=== PATIENT | female | born 1990 | race Caucasian/White ===

== ENCOUNTER 2018-07-24 02:51 | Emergency (ER) | payer BC ==
[2018-07-24 02:59] VITALS: BP 130/82; PULSE 61; TEMP 97.8; BMI 29.2
[2018-07-24] MEDS ORDERED: KETOROLAC TROMETHAMINE 60 MG/2 ML VIAL IM ONE (03:02)
[2018-07-24] MEDS ORDERED: KETOROLAC TROMETHAMINE 60 MG/2 ML VIAL ONE (03:02)
[2018-07-24] MEDS ORDERED: METOCLOPRAMIDE HCL INJECTION 10 MG/2 ML VIAL IM ONE (03:02)
--- NOTE | 2018-07-24 03:03 | PDOC ---
History of Present Illness - General Chief Complaint: Migraine Headache Stated Complaint: MIGRAINE Time Seen by Provider: 07/24/18 02:59 History Source: Patient Exam Limitations: No Limitations - History of Present Illness Initial Comments: 07/24/18 03:04 This is a 28-year-old female with history of migraines who comes in complaining of her typical migraine. Patient said that the frequency of them is changed other than that there is nothing new or unusual about her migraine headache. Patient said it is throbbing and frontal associated with nausea but no photophobia. Patient is otherwise healthy. Patient took her usual medication and so comes in for evaluation. PAST MEDICAL HISTORY: no significant history PAST SURGICAL HISTORY: no significant history FAMILY HISTORY: no pertinant history SOCIAL HISTORY: Pt lives with family and is employed. MEDICATIONS: reviewed ALLERGIES: As per nursing notes ROS General: No fevers or chills, no weakness, no weight loss HEENT: No change in vision. No sore throat,. No ear pain CardioVascular: No chest pain or shortness of breath Respiratory:No cough, or wheezing. Gastrointestinal: no nausea, vomiting, diarrhea or constipation, No rectal bleeding Genitourinary: No dysuria, hematuria, or frequency Musculoskeletal: . No joint pain or swelling Neurologic: + headache, vertigo, dizziness or loss of consciousness Psychiatric: nor depression Skin: No rashes or easy bruising Endocrine: no increased thirst or abnormal weight change Allergic: no skin or latex allergy All other systems reviewed and normal GENERAL: The patient is awake, alert, and fully oriented, in no acute distress. HEAD: Normal with no signs of trauma. EARS: Bilateral ears are normal with normal external canal. and tympanic membranes. EYES: Pupils equal, round and reactive to light, extraocular movements intact, sclera anicteric, conjunctiva clear. EXTREMITIES: Normal range of motion, no edema. NEUROLOGICAL: Normal speech, normal gait. grossly intact PSYCH: Normal mood, normal affect. SKIN: Warm, Dry, normal turgor, no rashes or lesions noted. Reevaluation postmedication patient's headache is much improved not completely resolved however nausea is resolved and patient wants to go home. Patient discharged home to follow up with her neurologist as this is a new pattern for her headaches Past History - Past Medical History Allergies/Adverse Reactions: Allergies Allergy/AdvReac Type Severity Reaction Status Date / Time Penicillins Allergy Verified 07/24/18 02:52 Home Medications: Ambulatory Orders NK [No Known Home Medication] 07/24/18 Asthma: (CHILDHOOD) COPD: No Other medical history: MIGRAINES - Suicide/Smoking/Psychosocial Hx Smoking History: Former smoker Have you smoked in the past 12 months: Yes If you are a former smoker, when did you quit?: 2 MONTHS AGO Information on smoking cessation initiated: No *Physical Exam - Vital Signs Last Vital Signs Temp Pulse Resp BP Pulse Ox 97.8 F 61 16 130/82 100 07/24/18 02:54 07/24/18 02:54 07/24/18 02:54 07/24/18 02:54 07/24/18 02:54 *DC/Admit/Observation/Transfer Diagnosis at time of Disposition: Migraine - Discharge Dispostion Disposition: HOME Condition at time of disposition: Stable Decision to Admit order: Yes - Referrals - Patient Instructions Additional Instructions: Return to the emergency department immediately with ANY new, persistent or worsening symptoms. Continue any medications as previously prescribed by your physician. You should follow up with your primary doctor as soon as possible regarding today's emergency department visit. . Please make sure your doctor reviews the results of your emergency evaluation. Thank you for coming to the Emergency Department today for your care. It was a pleasure to see you today. Please note that your evaluation is INCOMPLETE until you follow-up with your doctor. - Post Discharge Activity Forms/Work/School Notes: Back to Work
== END 2018-07-24 04:00 | disposition home or self-care (01) ==
LOC: FER 02:51
PROC: 3E0233Z Introduction of Anti-inflammatory into Muscle, Percutaneous Approach (ICD-10-PCS; principal; 2018-07-24)
PROC: 3E023GC Introduction of Other Therapeutic Substance into Muscle, Percutaneous Approach (ICD-10-PCS; 2018-07-24)
DX: G43.909 Migraine, unspecified, not intractable, without status migrainosus (principal); Z87.891 Personal history of nicotine dependence
CPT/HCPCS: 99281-25

== ENCOUNTER 2019-08-28 07:39 | Emergency (ER) | payer BC ==
[2019-08-28] MEDS ORDERED: ONDANSETRON 4 MG/2 ML VIAL IVPB ONE (07:43)
[2019-08-28] MEDS ORDERED: SODIUM CHLORIDE 1,000 ML IV STA (07:43)
[2019-08-28] MEDS ORDERED: ONDANSETRON 4 MG/2 ML VIAL ONE ×3 (07:45→11:27)
[2019-08-28] MEDS ORDERED: LORazepam 2 MG/ML SDV VIAL ONE (07:57)
[2019-08-28 08:14] VITALS: TEMP 98.3; BMI 27.4
[2019-08-28 08:36] LABS: EOS % 0.6 % (0-4.5); HEMATOCRIT 35.7 % (32.4-45.2); HEMOGLOBIN 12.1 GM/dl (10.7-15.3); MCH 30.1 pg (25.7-33.7); MEAN CELL VOLUME 88.7 fl (80-96); MEAN PLT VOLUME 7.8 fl (7.5-11.1); MONO % 8.7 % (3.8-10.2); NEUT % 58.7 % (42.8-82.8); PLATELET COUNT 294 K/MM3 (134-434); RBC 4.03 M/mm3 (3.60-5.2); RDW 12.1 % (11.6-15.6); WHITE BLOOD COUNT 5.8 K/mm3 (4.0-10.8)
[2019-08-28] MEDS ORDERED: METOCLOPRAMIDE HCL INJECTION 10 MG/2 ML VIAL IVPUSH ONE (08:36)
[2019-08-28 08:40] LABS: ALBUMIN 3.7 g/dl (3.4-5.0); CALCIUM 8.3 mg/dl (8.5-10); CREATININE 0.6 mg/dl (0.55-1.3); POTASSIUM 3.7 mmol/L (3.5-5.1); TOT PROT 6.5 g/dl (6.4-8.2)
[2019-08-28] MEDS ORDERED: METOCLOPRAMIDE HCL INJECTION 10 MG/2 ML VIAL ONE (08:45)
[2019-08-28] MEDS ORDERED: ACETAMINOPHEN 1000 MG/100 ML VIAL (NON FORMULARY) IVPB ONE (09:00)
[2019-08-28] MEDS ORDERED: ACETAMINOPHEN INJECTION 100 ML IVPB ONE (09:04)
--- NOTE | 2019-08-28 10:47 | PDOC ---
History of Present Illness - General Chief Complaint: Nausea/Vomiting Stated Complaint: vomiting Time Seen by Provider: 08/28/19 07:42 History Source: Patient, Family, Friend Exam Limitations: No Limitations - History of Present Illness Initial Comments: 08/28/19 10:44 CHIEF COMPLAINT: Vomiting this morning since drinking alcohol last night HISTORY OF PRESENT ILLNESS: 29-year-old female with a history of asthma presents complaining of intractable vomiting after drinking too much alcohol overnight. She states she drank about 4 drinks including rum last night. This morning she has upper abdominal pain with recurrent episodes of vomiting. The vomitus is clear and yellow with no blood. There is no fever or chills. There is no diarrhea. The abdominal pain is in the mid upper abdomen. There is no radiation. REVIEW OF SYSTEMS: GENERAL/CONSTITUTIONAL: No fever or chills. No weakness. No weight change. HEAD, EYES, EARS, NOSE AND THROAT: No change in vision. No ear pain or discharge. No sore throat. CARDIOVASCULAR: No chest pain or shortness of breath. RESPIRATORY: No cough, wheezing, or hemoptysis. GASTROINTESTINAL: Positive nausea and ongoing vomiting. No diarrhea or constipation. No rectal bleeding. GENITOURINARY: No dysuria, frequency, or change in urination. MUSCULOSKELETAL: No joint or muscle swelling or pain. No neck or back pain. SKIN AND BREASTS: No rash or easy bruising. NEUROLOGIC: No headache, vertigo, loss of consciousness, or loss of sensation. PSYCHIATRIC: No depression or anxiety. ENDOCRINE: No increased thirst. No abnormal weight change. HEMATOLOGIC/LYMPHATIC: No anemia, easy bleeding, or history of blood clots. ALLERGIC/IMMUNOLOGIC: No hives or skin allergy. No latex allergy. Past History - Past Medical History Allergies/Adverse Reactions: Allergies Allergy/AdvReac Type Severity Reaction Status Date / Time Penicillins Allergy Verified 08/28/19 08:07 Home Medications: Ambulatory Orders Ondansetron [Zofran *Odt*] 4 mg GT Q4H PRN #12 tablet 08/28/19 Asthma: Yes (CHILDHOOD) COPD: No Other medical history: Spontaneous pneumothorax secondary to severe vomiting in the past, resolved - Psycho Social/Smoking Cessation Hx Smoking History: Former smoker Have you smoked in the past 12 months: Yes If you are a former smoker, when did you quit?: 2 MONTHS AGO Information on smoking cessation initiated: Yes Hx Alcohol Use: No Drug/Substance Use Hx: No *Physical Exam - Vital Signs Last Vital Signs Temp Pulse Resp BP Pulse Ox 98.3 F 63 20 100/66 100 08/28/19 07:39 08/28/19 07:39 08/28/19 07:39 08/28/19 07:39 08/28/19 07:39 - Physical Exam Comments: 08/28/19 10:47 GENERAL: The patient is awake and alert, very uncomfortable due to ongoing vomiting. She is noted to be retching frequently. HEAD: Normal with no signs of trauma. EYES: Pupils equal, round and reactive to light, extraocular movements intact, sclera anicteric, conjunctiva clear. ENT: Ears normal, nares patent, oropharynx clear without exudates. Moist mucous membranes. NECK: Normal range of motion, supple without lymphadenopathy, JVD, or masses. LUNGS: Breath sounds equal, clear to auscultation bilaterally. No wheezes, and no crackles. HEART: Regular rate and rhythm, normal S1 and S2 without murmur, rub or gallop. ABDOMEN: Soft, positive mid epigastric tenderness to palpation. No guarding or rebound tenderness. No masses. EXTREMITIES: Normal range of motion, no edema. No clubbing or cyanosis. No cords, erythema, or tenderness. NEUROLOGICAL: Cranial nerves II through XII grossly intact. Normal speech, normal gait. PSYCH: Normal mood, normal affect. SKIN: Warm, Dry, normal turgor, no rashes or lesions noted. ED Treatment Course - LABORATORY CBC & Chemistry Diagram: 08/28/19 08:16 08/28/19 08:16 - ADDITIONAL ORDERS Additional order review: Laboratory Results 08/28/19 08/28/19 08:16 08:16 Sodium 142 Potassium 3.7 Chloride 113 H Carbon Dioxide 19 L Anion Gap 10 BUN 10.0 Creatinine 0.6 Est GFR (CKD-EPI)AfAm 141.76 Est GFR (CKD-EPI)NonAf 122.31 Random Glucose 112 H Calcium 8.3 L Total Bilirubin 1.0 AST 26 ALT 24 Alkaline Phosphatase 54 Total Protein 6.5 Albumin 3.7 Lipase 103 08/28/19 08:16 RBC 4.03 MCV 88.7 MCHC 34.0 RDW 12.1 MPV 7.8 Neutrophils % 58.7 Lymphocytes % 31.0 Monocytes % 8.7 Eosinophils % 0.6 Basophils % 1.0 - Medications Given in the ED: ED Medications Discontinued Medications Generic Name Dose Route Start Last Admin Trade Name Michael PRN Reason Stop Dose Admin Acetaminophen 1,000 mg 08/28/19 09:00 08/28/19 09:08 Ofirmev Injection - IVPB 08/28/19 09:01 1,000 mg ONCE ONE Administration Sodium Chloride 1,000 mls @ 1,000 mls/hr 08/28/19 07:43 08/28/19 08:03 Normal Saline - IV 08/28/19 08:42 1,000 mls/hr ASDIR STA Administration Lorazepam 0.5 mg 08/28/19 07:56 08/28/19 08:03 Ativan Injection - IVPUSH 08/28/19 07:57 0.5 mg ONCE ONE Administration Lorazepam 0.5 mg 08/28/19 09:54 08/28/19 10:01 Ativan Injection - IVPUSH 08/28/19 09:55 0.5 mg ONCE ONE Administration Metoclopramide HCl 10 mg 08/28/19 08:36 08/28/19 08:48 Reglan Injection - IVPUSH 08/28/19 08:37 10 mg ONCE ONE Administration Ondansetron HCl 8 mg 08/28/19 07:43 08/28/19 08:03 Zofran Injection IVPB 08/28/19 07:44 8 mg ONCE ONE Administration Medical Decision Making - Medical Decision Making 08/28/19 12:59 Previously healthy 29-year-old female with prior history of asthma presents with nausea and vomiting after overindulging in alcohol with her friends last night. She has epigastric discomfort with nausea and repeated vomiting and retching. Patient received IV fluids here in the ED. She got multiple medications for nausea and vomiting which were finally successful. She rested in the ED and was able to tolerate oral intake prior to discharge. Repeat abdominal examination, while initially she had abdominal tenderness, is now totally benign with no further tenderness. Laboratory studies reviewed, normal white blood cell count, normal lipase, normal liver function tests. Impression: Alcohol induced gastritis with nausea and vomiting, now resolved. Plan: Advised to avoid alcohol intake Clear liquids to start and then advance diet as tolerated Zofran sent to the patient's pharmacy for use as needed. Laboratory Tests 11/12/1508/28/19 08/28/19 08:16 08:16 08:16 WBC 5.8 RBC 4.03 Hgb 12.1 Hct 35.7 MCV 88.7 MCH 30.1 MCHC 34.0 RDW 12.1 Plt Count 294 MPV 7.8 Absolute Neuts (auto) 3.4 Neutrophils % 58.7 Lymphocytes % 31.0 Monocytes % 8.7 Eosinophils % 0.6 Basophils % 1.0 Sodium 142 Potassium 3.7 Chloride 113 H Carbon Dioxide 19 L Anion Gap 10 BUN 10.0 Creatinine 0.6 Est GFR (CKD-EPI)AfAm 141.76 Est GFR (CKD-EPI)NonAf 122.31 Random Glucose 112 H Calcium 8.3 L Total Bilirubin 1.0 AST 26 ALT 24 Alkaline Phosphatase 54 Total Protein 6.5 Albumin 3.7 Lipase 103 Discharge - Discharge Information Problems reviewed: Yes Clinical Impression/Diagnosis: Alcoholic gastritis Qualifiers: Chronicity: acute Gastritis bleeding: without bleeding Qualified Code(s): K29.20 - Alcoholic gastritis without bleeding Condition: Improved Disposition: HOME - Admission No - Additional Discharge Information Prescriptions: Ondansetron [Zofran *Odt*] 4 mg GT Q4H PRN #12 tablet PRN Reason: nausea or vomiting - Follow up/Referral - Patient Discharge Instructions Patient Printed Discharge Instructions: DI for Vomiting -- Adult Additional Instructions: Today you were evaluated for nausea and vomiting with abdominal discomfort after drinking alcohol. The diagnosis is alcoholic gastritis. Drink clear fluids, and then advance your diet slowly as tolerated. Take Zofran 4 mg every 4 hours as needed for nausea or vomiting. Rest at home today and tomorrow, return to work on Friday if you are feeling better. Follow-up with your primary care physician. Return to the emergency department for any severe or progressive symptoms. - Post Discharge Activity Work/Back to School Note: Back to Work
[2019-08-28] MEDS ORDERED: KETOROLAC TROMETHAMINE 30 MG/1 ML VIAL ONE (10:54)
[2019-08-28 13:06] VITALS: BP 112/63; PULSE 59
== END 2019-08-28 15:38 | disposition home or self-care (01) ==
LOC: FER 07:39
PROC: 3E033NZ Introduction of Analgesics, Hypnotics, Sedatives into Peripheral Vein, Percutaneous Approach (ICD-10-PCS; principal; 2019-08-28)
PROC: 3E0337Z Introduction of Electrolytic and Water Balance Substance into Peripheral Vein, Percutaneous Approach (ICD-10-PCS; 2019-08-28)
PROC: 3E033GC Introduction of Other Therapeutic Substance into Peripheral Vein, Percutaneous Approach (ICD-10-PCS; 2019-08-28)
DX: K29.20 Alcoholic gastritis without bleeding (principal); Z88.0 Allergy status to penicillin
CPT/HCPCS: 36415; 80053; 81025; 83690; 85025; 99283-25; J0131; J7030

== ENCOUNTER 2019-12-26 14:45 | Emergency (ER) | payer BC ==
[2019-12-26 14:53] VITALS: BP 119/79; PULSE 72; TEMP 98.2; BMI 30.2
[2019-12-26] MEDS ORDERED: METOCLOPRAMIDE HCL INJECTION 10 MG/2 ML VIAL IVPUSH ONE (14:57)
[2019-12-26] MEDS ORDERED: KETOROLAC TROMETHAMINE 30 MG/1 ML VIAL IVPUSH ONE (14:57)
[2019-12-26] MEDS ORDERED: DEXAMETHASONE SOD PHOSPHATE 10 MG/1 ML VIAL IVPUSH ONE (14:57)
[2019-12-26] MEDS ORDERED: SODIUM CHLORIDE 1,000 ML IV STA (14:57)
--- NOTE | 2019-12-26 15:02 | PDOC ---
History of Present Illness - General Chief Complaint: Headache Stated Complaint: HEADACHE, NAUSEA, VOMITED Time Seen by Provider: 12/26/19 14:48 History Source: Patient Exam Limitations: No Limitations - History of Present Illness Initial Comments: 12/26/19 14:58 29 y/o female with hx of migraine headaches presents to ER with headache today. Patient has tried Tylenol and migraine medication with no relief. Patient feeling nauseous but no vomiting. Had to put her dog to sleep today and under a lot of stress. No fall or trauma. No fever or chills or weakness. Denies . Past History - Past Medical History Allergies/Adverse Reactions: Allergies Allergy/AdvReac Type Severity Reaction Status Date / Time Penicillins Allergy Hives Verified 12/26/19 14:47 Home Medications: Ambulatory Orders Ondansetron [Zofran *Odt*] 4 mg GT Q4H PRN #12 tablet 08/28/19 Acetaminophen [Tylenol -] 1,000 mg PO ASDIR 12/26/19 Albuterol Sulfate [Proair Hfa] 2 spray IH Q6H PRN 12/26/19 Naproxen Sodium [Aleve] 220 mg PO ASDIR 12/26/19 Asthma: Yes COPD: No Other medical history: migraine headaches - Psycho Social/Smoking Cessation Hx Smoking History: Current some day smoker Have you smoked in the past 12 months: Yes Number of Cigarettes Smoked Daily: 3 If you are a former smoker, when did you quit?: 2 MONTHS AGO Information on smoking cessation initiated: Yes 'Breaking Loose' booklet given: 08/28/19 Hx Alcohol Use: (occasional) Drug/Substance Use Hx: No Review of Systems - Review of Systems Able to Perform ROS?: Yes Is the patient limited [place]er proficient: No Constitutional: No: Chills, Fever HEENTM: No: Double Vision Respiratory: No: Cough, Shortness of Breath Cardiac (ROS): No: Chest Pain ABD/GI: Yes: Nausea. No: Diarrhea, Vomiting Neurological: Yes: Headache Psychiatric: No: Anxiety All Other Systems: Reviewed and Negative *Physical Exam - Vital Signs Last Vital Signs Temp Pulse Resp BP Pulse Ox 98.2 F 72 18 119/79 100 12/26/19 14:45 12/26/19 14:45 12/26/19 14:45 12/26/19 14:45 12/26/19 14:45 - Physical Exam General Appearance: Yes: Nourished, Appropriately Dressed. No: Apparent Distress HEENT: positive: EOMI, MARLON, Normal ENT Inspection, Normal Voice, Symmetrical, Pharynx Normal Neck: positive: Trachea midline, Normal Thyroid, Supple. negative: Tender, Rigid, Carotid bruit Respiratory/Chest: positive: Lungs Clear, Normal Breath Sounds. negative: Chest Tender, Respiratory Distress Cardiovascular: positive: Regular Rhythm, Regular Rate, S1, S2. negative: Edema , JVD, Murmur Vascular Pulses: Femoral (R): 4+, Femoral (L): 4+, Carotid (R): 4+, Carotid (L) : 4+, Dorsalis-Pedis (R): 4+, Doralis-Pedis (L): 4+ Gastrointestinal/Abdominal: positive: Normal Bowel Sounds, Flat, Soft. negative : Tender, Organomegaly, Pulsatile Mass Lymphatic: negative: Adenopathy, Tenderness, Other Musculoskeletal: positive: Normal Inspection. negative: CVA Tenderness Extremity: positive: Normal Capillary Refill, Normal Inspection, Normal Range of Motion Integumentary: positive: Normal Color, Dry, Warm Neurologic: positive: power station operator II-XII NML intact, Fully Oriented, Alert, Normal Mood/ Affect, Normal Response, Motor Strength 5/5 (strength 5+/5 b/l in UE and LE, no focal deficits noted) ED Progress Note - Progress Note Progress Note: 12/26/19 15:01 Pt with hx of migraines presents with headache Will treat with IVF and medications Pt in agreement with plan 12/26/19 16:12 Pt is feeling better Will discharge home to continue with current migraine medications If worsen to return to ER Pt is in agreement with plan Discharge - Discharge Information Problems reviewed: Yes Clinical Impression/Diagnosis: Migraine Qualifiers: Migraine type: unspecified Status migrainosus presence: without status migrainosus Intractability: not intractable Qualified Code(s): G43.909 - Migraine, unspecified, not intractable, without status migrainosus Condition: Improved Disposition: HOME - Admission No - Follow up/Referral - Patient Discharge Instructions Patient Printed Discharge Instructions: DI for Migraine Additional Instructions: Fluids, rest Continue current migraine medications If worsen return to ER - Post Discharge Activity
[2019-12-26] MEDS ORDERED: DEXAMETHASONE SOD PHOSPHATE 10 MG/1 ML VIAL ONE (15:12)
[2019-12-26] MEDS ORDERED: METOCLOPRAMIDE HCL INJECTION 10 MG/2 ML VIAL ONE (15:12)
[2019-12-26] MEDS ORDERED: KETOROLAC TROMETHAMINE 30 MG/1 ML VIAL ONE (15:12)
== END 2019-12-26 16:25 | disposition home or self-care (01) ==
LOC: FER 14:45
PROC: 3E033GC Introduction of Other Therapeutic Substance into Peripheral Vein, Percutaneous Approach (ICD-10-PCS; principal; 2019-12-26)
PROC: 3E0333Z Introduction of Anti-inflammatory into Peripheral Vein, Percutaneous Approach (ICD-10-PCS; 2019-12-26)
DX: G43.909 Migraine, unspecified, not intractable, without status migrainosus (principal); Z88.0 Allergy status to penicillin; F17.210 Nicotine dependence, cigarettes, uncomplicated; J45.909 Unspecified asthma, uncomplicated
CPT/HCPCS: 99284-25; J1100; J7030

== ENCOUNTER 2022-12-23 19:47 | Emergency (ER) | payer BC ==
[2022-12-23] MEDS ORDERED: METOCLOPRAMIDE HCL INJECTION 10 MG/2 ML VIAL IVPB ONE (20:00)
[2022-12-23] MEDS ORDERED: SODIUM CHLORIDE 1,000 ML IV ONE (20:00)
[2022-12-23] MEDS ORDERED: KETOROLAC TROMETHAMINE 30 MG/1 ML VIAL IVPUSH ONE (20:00)
[2022-12-23] MEDS ORDERED: FAMOTIDINE 20 MG/50 ML IVPB 20 MG/50 ML MG IVPB ONE ×2 (20:01→20:36)
[2022-12-23] MEDS ORDERED: KETOROLAC TROMETHAMINE 30 MG/1 ML VIAL ONE (20:02)
[2022-12-23] MEDS ORDERED: METOCLOPRAMIDE HCL INJECTION 10 MG/2 ML VIAL ONE (20:03)
[2022-12-23 20:32] VITALS: BP 124/91; PULSE 78; RESP 19; TEMP 97; BMI 31.1
[2022-12-23] MEDS ORDERED: methylPREDNISolone ACET (DEPO) 80 MG/1 ML VIAL IAR ONE (21:23)
== END 2022-12-23 21:32 | disposition home or self-care (01) ==
LOC: FER 19:47
PROC: 3E033GC Introduction of Other Therapeutic Substance into Peripheral Vein, Percutaneous Approach (ICD-10-PCS; principal; 2022-12-23)
PROC: 3E0333Z Introduction of Anti-inflammatory into Peripheral Vein, Percutaneous Approach (ICD-10-PCS; 2022-12-23)
PROC: 3E033GC Introduction of Other Therapeutic Substance into Peripheral Vein, Percutaneous Approach (ICD-10-PCS; 2022-12-23)
PROC: 3E0337Z Introduction of Electrolytic and Water Balance Substance into Peripheral Vein, Percutaneous Approach (ICD-10-PCS; 2022-12-23)
DX: G43.909 Migraine, unspecified, not intractable, without status migrainosus (principal)
CPT/HCPCS: 99284-25